=== PATIENT | female | born 1955 | race Caucasian/White ===

== ENCOUNTER 2022-04-14 17:04 | Observation (INO) | payer OTHER ==
[2022-04-14] MEDS ORDERED: SODIUM CHLORIDE 0.9% 1,000 ML IV ONE (19:37)
[2022-04-14] MEDS ORDERED: MECLIZINE 12.5 MG TAB PO STA (19:37)
[2022-04-14 20:08] LABS: Basophils % (A) 0 %; Eosinophils % (A) 0 %; HCT 41.7 % (34.0-46.0); HGB 14.5 gm/dL (11.4-16.0); Lymphocytes # (A) 1.9 k/uL (1.0-4.8); Lymphocytes % (A) 23 %; MCHC 34.8 g/dL (31.0-37.0); MCV 91.8 fL (80.0-100.0); Mean Platelet Volume 8.5; Monocytes # (A) 0.3 k/uL (0-1.0); Monocytes % (A) 4 %; Neutrophils # (A) 6.1 k/uL (1.3-7.7); Neutrophils % (A) 71 %; Platelet Count 230 k/uL (150-450); RBC 4.54 m/uL (3.80-5.40); RDW 12.1 % (11.5-15.5); WBC 8.5 k/uL (3.8-10.6)
[2022-04-14 20:18] LABS: ALT 21 U/L (4-34); AST 28 U/L (14-36); African American GFR (CKD) >90 (>60 ml/min/1.73 sqM); Albumin 4.3 g/dL (3.5-5.0); Alkaline Phosphatase 119 U/L (38-126); Anion Gap 4 mmol/L; Blood Urea Nitrogen 13 mg/dL (7-17); Calcium 9.7 mg/dL (8.4-10.2); Carbon Dioxide 29 mmol/L (22-30); Chloride 108 mmol/L (98-107); Glucose 94 mg/dL (74-99); Magnesium 2.2 mg/dL (1.6-2.3); Non-African American GFR(CKD) >90 (>60 ml/min/1.73 sqM); Potassium 3.9 mmol/L (3.5-5.1); Sodium 141 mmol/L (137-145); Total Bilirubin 0.3 mg/dL (0.2-1.3); Total Protein 6.8 g/dL (6.3-8.2)
--- NOTE | 2022-04-14 21:30 | CT ---
EXAMINATION TYPE: CT angio head neck CT DLP: 319.2 mGycm, Automated exposure control for dose reduction was used. DATE OF EXAM: 04/14/2022 9:09 PM COMPARISON: None. CLINICAL INDICATION:Female, 66 years old with history of Persistent dizziness, Persistent dizziness, recent episode of syncope TECHNIQUE: Axially acquired helical CT angiogram of the head and neck was obtained with contrast. Axi al images are supplemented with 3D reconstructions which were post-processed at [facility] NASCET criteria used. Contrast used:65cc mL of Isovue 370 with IV Contrast, Oral contrast used: None. FINDINGS: CTA HEAD: No evidence of acute intracranial hemorrhage, mass effect, or midline shift. The ventricles, sulci, a nd cisterns are unremarkable. The visualized portions of the internal carotid arteries, middle cerebral arteries, anterior cerebral arteries, and posterior cerebral arteries are patent. The basilar and vertebral arteries are patent. CTA NECK: Right Carotid System: The common carotid artery and external carotid artery are patent. The carotid bifurcation demonstrate s no evidence of hemodynamically significant stenosis. The remaining portions of the internal carotid artery demonstrate normal size without significant narrowing. Left Carotid System: The common carotid artery and external carotid artery are patent. The carotid bifurcation demonstrate s no evidence of hemodynamically significant stenosis. The remaining portions of the internal carotid artery demonstrate normal size without significant narrowing. Vertebral arteries are patent without evidence hemodynamically significant stenosis. There is a three-vessel aortic arch. The origins of the great vessels are patent. No evidence of hemo dynamically significant stenosis. Azygous fissure noted in the right lung apex. IMPRESSION: 1. No evidence of dissection of the cervical internal carotid arteries or vertebral arteries or any e vidence of significant stenosis at the carotid bifurcations. 2. No evidence of intracranial high-grade stenosis or intracranial aneurysm.
[2022-04-14] MEDS ORDERED: NALOXONE 0.4 MG/ML 1 ML VIAL IV PRN (22:55)
--- NOTE | 2022-04-14 22:59 | ED ---
General Adult HPI - General Chief complaint: Fall Stated complaint: IHS, Fall, Head Injury Time Seen by Provider: 04/14/22 18:55 Source: patient Mode of arrival: ambulatory Limitations: no limitations - History of Present Illness Initial comments: This is a 66-year-old female with no past medical history presents emergency department for persistent dizziness. The patient stated that on Tuesday she was at work when she tripped and fell after starting to be dizzy and had a syncopal episode. The patient stated that because of this she was forced to come to the emergency department for evaluation. After speaking with the patient for an extended period of time, was reported the patient has had increasing room spinning over the last 4 days associated with "blacking out" multiple times through the day. The patient stated that every time she turns her head right or left it makes the room spinning worse. The patient stated that she is unable to walk straight and is off balance secondary to this. The patient denied having any similar symptoms in the past and denied any URI symptoms the previous weeks. The patient denied any other acute pain or complaints denied any trauma. The patient stated that she had did not hit her head. - Related Data Allergies Allergy/AdvReac Type Severity Reaction Status Date / Time Penicillins Allergy Mild Rash/Hives Verified 04/14/22 17:23 acetaminophen [From Tylenol] Allergy Rash/Hives Verified 04/14/22 17:23 codeine Allergy Rash/Hives Verified 04/14/22 17:23 Review of Systems ROS Statement: Those systems with pertinent positive or pertinent negative responses have been documented in the HPI. ROS Other: All systems not noted in ROS Statement are negative. Past Medical History Past Medical History: No Reported History History of Any Multi-Drug Resistant Organisms: None Reported Past Surgical History: No Surgical Hx Reported Past Psychological History: No Psychological Hx Reported Smoking Status: Former smoker Past Alcohol Use History: None Reported Past Drug Use History: None Reported General Exam Limitations: no limitations General appearance: alert, in no apparent distress Head exam: Present: atraumatic, normocephalic, normal inspection Eye exam: Present: normal appearance, PERRL, EOMI Pupils: Present: normal accommodation ENT exam: Present: normal exam, normal oropharynx, mucous membranes moist Neck exam: Present: normal inspection, full ROM Respiratory exam: Present: normal lung sounds bilaterally Cardiovascular Exam: Present: regular rate, normal rhythm, normal heart sounds GI/Abdominal exam: Present: soft, normal bowel sounds Extremities exam: Present: normal inspection, full ROM Back exam: Present: normal inspection, full ROM Neurological exam: Present: alert, oriented X3, CN II-XII intact, other (Abnormal, unsteady gait with ambulation, patient did not have any symptoms at rest) Psychiatric exam: Present: normal affect, normal mood Skin exam: Present: warm, dry Course Vital Signs 04/14/22 17:20 Temperature 96.8 F L Pulse Rate 68 Respiratory 18 Rate Blood Pressure 142/82 O2 Sat by Pulse 98 Oximetry Medical Decision Making - Medical Decision Making Patient was seen and evaluated in the emergency department. Physical exam, the patient was resting in bed without any acute distress. Vital signs on admission were stable and within normal limits. Due to the nature the patient's persistent room spinning and likely vertigo, CTA of the head and neck was obtained. CTA of the head and neck was negative as was all of her workup. The patient was given 1 L no sealing fluid as well as by mouth Antivert. On reevaluation, the patient stated that her dizziness was mildly improved however every time she moved her head her dizziness was persistent. The patient stated that as she ambulated, she had steady gait and was imbalance. Due to the patient's persistent dizziness and likely vertigo, the patient would require further evaluation. The patient stated that she was unwilling to go home and she stated she did not feel safe as she was still off-balance. Due to these findings, it was agreed to place the patient observation to be seen by neurology. Neurology was present consult at this time. The patient was able to the splint was placed in observation in stable condition. - Lab Data Result diagrams: 04/14/22 19:53 04/14/22 19:53 Lab Results 04/14/22 04/14/22 Range/Units 19:53 19:53 WBC 8.5 (3.8-10.6) k/uL RBC 4.54 (3.80-5.40) m/uL Hgb 14.5 (11.4-16.0) gm/dL Hct 41.7 (34.0-46.0) % MCV 91.8 (80.0-100.0) fL MCH 32.0 (25.0-35.0) pg MCHC 34.8 (31.0-37.0) g/dL RDW 12.1 (11.5-15.5) % Plt Count 230 (150-450) k/uL MPV 8.5 Neutrophils % 71 % Lymphocytes % 23 % Monocytes % 4 % Eosinophils % 0 % Basophils % 0 % Neutrophils # 6.1 (1.3-7.7) k/uL Lymphocytes # 1.9 (1.0-4.8) k/uL Monocytes # 0.3 (0-1.0) k/uL Eosinophils # 0.0 (0-0.7) k/uL Basophils # 0.0 (0-0.2) k/uL Sodium 141 (137-145) mmol/L Potassium 3.9 (3.5-5.1) mmol/L Chloride 108 H (98-107) mmol/L Carbon Dioxide 29 (22-30) mmol/L Anion Gap 4 mmol/L BUN 13 (7-17) mg/dL Creatinine 0.66 (0.52-1.04) mg/dL Est GFR (CKD-EPI)AfAm >90 (>60 ml/min/1.73 sqM) Est GFR (CKD-EPI)NonAf >90 (>60 ml/min/1.73 sqM) Glucose 94 (74-99) mg/dL Calcium 9.7 (8.4-10.2) mg/dL Magnesium 2.2 (1.6-2.3) mg/dL Total Bilirubin 0.3 (0.2-1.3) mg/dL AST 28 (14-36) U/L ALT 21 (4-34) U/L Alkaline Phosphatase 119 (38-126) U/L Total Protein 6.8 (6.3-8.2) g/dL Albumin 4.3 (3.5-5.0) g/dL Disposition Clinical Impression: Dizziness, Vertigo, Pre-syncope Disposition: ADMITTED IP TO THIS HOSP Condition: Stable Is patient prescribed a controlled substance at d/c from ED?: No Referrals: None,Stated [Primary Care Provider] - 1-2 days Time of Disposition: 22:50 Decision to Admit Reason: Admit from EC Decision Date: 04/14/22 Decision Time: 22:50
[2022-04-14] MEDS: SODIUM CHLORIDE 0.9% 1,000 ML IV SCH (23:01)
[2022-04-15] MEDS ORDERED: MECLIZINE 12.5 MG TAB PO PRN (09:06)
--- NOTE | 2022-04-15 09:56 | P.CNNES ---
History of Present Illness Consult date: 04/15/22 Requesting physician: Walt Dash Reason for Consult: persistent dizziness, vertigo History of Present Illness: This is a 66-year-old woman who presented emergency department because of dizziness. This Tuesday the patient was at work and she was feeling dizzy as a result she tripped and fell. She has been having dizziness for 4 days prior to present in the hospital and she feels the room is spinning associate with blacking out multiple times throughout the day. Whenever she turns her head to the right or left makes the room spinning even worse. She denies ringing of ears, focal weakness, numbness, visual disturbance. She stated this past Tuesday she "blacked out" and stated it happened twice at home. She denies urinary or bowel incontinence or tongue bite or soreness of tongue. She felt one episode was very short in duration and other was possibly long but those were unwitnessed. Denies history of seizure. She feels her symptoms are improving of dizziness. Denies further black outs. Some of the workup during his hospital visit consisted of: Patient orthostatic vitals of supine sitting and standing blood pressure will is negative for orthostatic. CBC with differential and chemistry panel seem unremarkable. CT angiography of the head and neck is reported as no evidence of dissection of the cervical internal carotid arteries or vertebral arteries or any evidence of significant stenosis at the carotid bifurcation. No evidence of intracranial high-grade stenosis or intracranial aneurysm. Review of Systems Review of system: The 12 point system was reviewed and apparent positive and negative per HPI. Past Medical History Past Medical History: No Reported History History of Any Multi-Drug Resistant Organisms: None Reported Past Surgical History: No Surgical Hx Reported Past Psychological History: No Psychological Hx Reported Smoking Status: Former smoker Past Alcohol Use History: None Reported Past Drug Use History: None Reported Medications and Allergies Home Medications Medication Instructions Recorded Confirmed Type No Known Home Medications 04/15/22 04/15/22 History Allergies Allergy/AdvReac Type Severity Reaction Status Date / Time Penicillins Allergy Mild passes out Verified 04/15/22 06:40 acetaminophen [From Tylenol] Allergy passes out Verified 04/15/22 06:40 codeine Allergy passes out Verified 04/15/22 06:40 Physical Examination - Vital Signs Vital Signs: Vital Signs Temp Pulse Pulse Resp BP BP BP 04/15/22 07:00 97.4 F L 66 16 144/89 144/99 04/15/22 06:00 52 L 16 105/63 04/14/22 17:20 96.8 F L 68 18 142/82 BP Pulse Ox 04/15/22 07:00 134/78 98 04/15/22 06:00 99 04/14/22 17:20 98 Intake and Output 04/14/22 04/15/22 04/15/22 22:59 06:59 14:59 Other: # Voids 1 Weight 72.575 kg GENERAL: The patient is lying in bed and is not in acute distress. CHEST: The heart rate is regular rate rhythm. No murmurs to auscultation. LUNG: Clear to auscultation bilaterally no wheezing noted throughout. Not labored breathing. ABDOMEN/GI: Bowel sounds present in all 4 quadrants. No tenderness to palpation throughout. NEUROLOGICAL: Higher mental function: The patient is awake, alert, oriented to self, place and time. Patient is following commands. No aphasia and no neglect. Cranial nerves: The pupils are round, equal and reactive to light and accommodation. Visual valdovinos are full to confrontation throughout. Extraocular movement is intact no nystagmus is noted. Facial sensation is normal to touch throughout. The facial strength is normal throughout. Hearing is normal bilaterally to hand rub. Tongue is midline and moved [id number] without any difficulty. No dysarthria is noted. Shoulder shrug is normal bilaterally. Motor: Gait felt slightly dizzy getting up or sitting down but walking on own without difficulty and not swaying towards one side or other. The strength is 5 over 5 throughout. Normal tone and bulk. Cerebellum: Normal finger to nose bilaterally. Sensation: Sensation is normal to touch throughout. Reflexes (right/left): 1+ throughout. Plantars are downgoing bilaterally. Results - Laboratory Findings CBC and BMP: 04/14/22 19:53 04/14/22 19:53 Abnormal Lab Findings: Abnormal Labs 04/14/22 19:53 Chloride 108 H Assessment and Plan Assessment: Acute vertigo and it appears likely more peripheral. Syncopal episode due to above (stated had two black out this past Tuesday). Does not appear seizure. Plan: MRI of the brain is ordered by ED team and is pending. Patient was given meclizine 25 mg once. I started the patient on meclizine 12.5mg 1 tab tid PRN. Consulted physical therapy and occupation therapy for gait training I gave patient instructions of the Aidan maneuver Primary team ordered routine EEG for syncopal episodes. If MRI of the brain is negative and the patient continues to have vertigo that I recommend the patient to follow-up with ENT possible consideration of vestibular rehab therapy. We'll defer the rest of the medical management to the primary team. If MRI the brain is negative for stroke or mass and routine EEG is normal then the patient is clear from a neurological perspective. Thank you for the consultation Time with Patient: Greater than 30
[2022-04-15 12:10] LABS: Appearance,Urine Clear (Clear); Bacteria,Urine Rare /hpf; Bilirubin,Urine Negative (Negative); Blood,Urine Negative (Negative); Color,Urine Light Yellow; Glucose,Urine (UA) Negative (Negative); Ketones,Urine Negative (Negative); Leukocyte Esterase,Urine Moderate (Negative); Mucus,Urine Rare /hpf; Nitrite,Urine Negative (Negative); PH, Urine 6.5 (5.0-8.0); Protein,Urine Negative (Negative); RBC,Urine 1 /hpf (0-5); Specific Gravity,Urine 1.013 (1.001-1.035); Squamous Epithelial Cell,Urine <1 /hpf (0-4); Urobilinogen,Urine <2.0 mg/dL (<2.0); WBC,Urine 4 /hpf (0-5)
[2022-04-15] MEDS: SODIUM CHLORIDE 0.9% 1,000 ML IV SCH ×2 (12:44→19:56)
--- NOTE | 2022-04-15 14:27 | MR ---
EXAMINATION TYPE: MR brain wo con DATE OF EXAM: 04/15/2022 2:20 PM COMPARISON: CTA head 04/14/2022. CLINICAL INDICATION:Female, 66 years old with history of Persistent dizziness, vertigo; PHH, TECHNIQUE: Multi planar, multi sequence imaging was performed through the brain without the administr ation of contrast. FINDINGS: The arndt-white junctions, ventricular system, and cisterns appear unremarkable. Patchy areas of high T2 signal intensity are seen within the periventricular white matter. Midline structures show no abn ormality. Small likely developmental venous anomaly demonstrated within the left parietal lobe (serie s 601, image 425). Diffusion-weighted imaging shows no evidence of restricted diffusion. The suscepti bility weighted images do not reveal any evidence for micro-hemorrhage. The bone marrow signal is within normal limits. The paranasal sinuses and globes are unremarkable. IMPRESSION: 1. No evidence of intracranial mass or acute/subacute infarct. 2. Nonspecific white matter changes, likely secondary to small vessel ischemic disease.
--- NOTE | 2022-04-15 20:32 | HP ---
HISTORY AND PHYSICAL CHIEF COMPLAINT: Vertigo. HISTORY OF PRESENT ILLNESS: This is the first known admission for this 66-year-old white female. Her history is somewhat unusual. Apparently, last Tuesday, she slipped on something at work and fell. She apparently did not have any injury. She did not hit her head. She slipped on something on the floor and there was no history to suggest syncope or any other neurologic issues. She did not have any dizziness. The day before admission, which was 2 days after she fell, she started to develop dizziness, which sounded like true vertigo, when she move her head in any direction will become severe. She also then noticed a final headache. She had no associated hearing loss, tinnitus, any cranial nerve or [employer] signs. She did notice that she had some hypoesthesias in the right arm and leg. These have pretty much cleared now. In the emergency room, she had a CTA of the neck and brain and they were normal. She denies any loss of vision in either eye or any history of [employer] injuries, seizures, etc. She has no family history of any neurologic disorders. Vital signs are normal. REVIEW OF SYSTEMS: She has had no other complaints or problems. She has had no fever, chills, rashes, shortness of breath, cough, history of heart disease, palpitations, murmurs, abdominal pain, nausea, vomiting, hematemesis, melena, hematochezia, jaundice, hepatitis, renal disease, nocturia, frequency, loss of sphincter control, diabetes, etc. Past medical history, family history and personal and social histories are essentially otherwise unremarkable. She does not smoke, drink, or use drugs. She is not on any medication. Family history is unremarkable even though there is some hypertension, diabetes, and Parkinson disease. PHYSICAL EXAMINATION: VITAL SIGNS: Blood pressure 132/86 with a pulse of 89, respirations of 29. She is afebrile. GENERAL: She appeared to be well developed, well nourished, no acute distress. Skin color is normal. SKIN: Warm, dry. LYMPHATICS: Lymph nodes are not enlarged. HEAD, EARS, EYES, NOSE, MOUTH AND THROAT: Normal. NECK: Neck veins are not distended. Thyroid not enlarged. CHEST: Clear. Carotids are normal. CARDIAC: Normal with normal sinus rhythm and no murmurs or extra sounds. ABDOMEN: Soft, nontender. EXTREMITIES: Normal. NEUROLOGICAL: She is intact. Cranial nerves and sensory motor exam were normal. When she turned her head to the right, she did have some reproducible vertigo. IMPRESSION: 1. Vertigo. 2. History of hypoesthesias in the right arm and leg. 3. Headache. PLAN: 1. Bedrest. 2. IV fluids. 3. MRI of the brain. 4. Neurology consult. 5. She wants to be a DNR. MMZEEL / ANY: [id number] /
--- NOTE | 2022-04-15 23:59 | EEG ---
ELECTROENCEPHALOGRAM REPORT CLINICAL HISTORY: This is a 66-year-old woman with dizziness and reported blackouts at home. The video EEG is obtained to evaluate for seizure epileptiform activity. RELEVANT MEDICATION: The patient is not on any antiepileptic drugs. EEG TYPE: A routine 21-channel EEG is performed with video using the 10/20 electrode placement system. DESCRIPTION: Wakefulness and drowsiness are obtained. During awake state, the posterior- dominant rhythm consists of [id number] voltage of 10 to 11 hertz activity that is well modulated, well sustained. There is no physiological stage 2 sleep architecture. There is no focal slowing. Interictal and ictal is none. ACTIVATION PROCEDURE: Photic stimulation did not evoke a posterior driving response. There is no abnormality during the photic stimulation. Hyperventilation is not performed. CLINICAL INTERPRETATION: This is a normal routine EEG. There is no focal slowing, epileptiform discharge, or seizure on the EEG. Normal routine EEG does not rule out underlying epilepsy. Clinical correlation is recommended. WANG / ANY: [id number] / MTDChary
--- NOTE | 2022-04-16 02:35 | PN ---
PROGRESS NOTE CHIEF COMPLAINT: Vertigo, headache, and right-sided hypoesthesias. HISTORY OF PRESENT ILLNESS: This lady is still having a little difficulty with headache and she still has positional vertigo. The hypoesthesias in the right arm have subsided somewhat. PHYSICAL EXAMINATION: CHEST: Clear. CARDIAC: Normal. NEUROLOGICAL: She is intact. IMPRESSION: 1. Labyrinthitis. 2. Hypoesthesias in the right arm. 3. Headache. PLAN: MRI is pending and she is to be seen by Neurology. We will increase her activity and she is on Antivert. MMODL / IJN: [id number] /
[2022-04-16 04:24] VITALS: RESP 16
--- NOTE | 2022-04-16 13:00 | P.PN ---
Subjective Progress Note Date: 04/16/22 The patient is seen at bedside and she feels her dizziness is improving. Denies any further blackouts. Objective - Vital Signs Vital signs: Vital Signs Temp 98.0 F 04/16/22 07:00 Pulse 65 04/16/22 07:00 Resp 16 04/16/22 07:00 BP 119/77 04/16/22 07:00 Pulse Ox 98 04/16/22 07:00 FiO2 Intake & Output 04/15/22 04/16/22 04/16/22 18:59 06:59 18:59 Intake Total 343 Balance 343 Weight 72.575 kg Intake: Oral 343 Other: # Voids 1 1 - Exam GENERAL: The patient is lying in bed and is not in acute distress. NEUROLOGICAL: Higher mental function: The patient is awake, alert, oriented to self, place and time. Patient is following commands. No aphasia and no neglect. Cranial nerves: The pupils are round, equal and reactive to light and accommodation. Visual valdovinos are full to confrontation throughout. Extraocular movement is intact no nystagmus is noted. Facial sensation is normal to touch throughout. The facial strength is normal throughout. Tongue is midline and moved [id number] without any difficulty. No dysarthria is noted. Shoulder shrug is normal bilaterally. Motor: Gait is normal. The strength is 5 over 5 throughout. Normal tone and bulk. Cerebellum: Normal finger to nose heel to chin bilaterally. Sensation: Sensation is normal to touch throughout. Some of the workup during his hospital visit consisted of: Patient orthostatic vitals of supine sitting and standing blood pressure is neg ative for orthostatic. CBC with differential and chemistry panel seem unremarkable. CT angiography of the head and neck is reported as no evidence of dissection of the cervical internal carotid arteries or vertebral arteries or any evidence of significant stenosis at the carotid bifurcation. No evidence of intracranial high-grade stenosis or intracranial aneurysm. MRI the brain is reported as no evidence of atrial mass or acute/subacute infarct. Nonspecific white matter changes, likely secondary to small vessel ischemic disease. Routine EEG is normal. There is no focal slowing, epileptiform discharges or seizure on the EEG. Normal routine EEG does not rule out underlying epilepsy. - Labs CBC & Chem 7: 04/14/22 19:53 04/14/22 19:53 Assessment and Plan Assessment: Acute vertigo and it appears peripheral. MRI Brain is negative---vertigo has improved Syncopal episode due to above (stated had two black out this past Tuesday). Does not appear seizure. Routine EEG is normal. Plan: Continue meclizine 12.5mg 1 tab tid PRN. Consulted physical therapy and occupation therapy for gait training I gave patient instructions of the Aidan maneuver If patient continues to have vertigo, recommend to follow-up with ENT possible consideration of vestibular rehab therapy. We'll defer the rest of the medical management to the primary team. No further neurological work-up. Will sign off. Please reconsult if needed. Time with Patient: Less than 30
[2022-04-16 16:44] VITALS: BP 128/77; PULSE 79; TEMP 97.6
--- NOTE | 2022-04-20 08:45 | DS ---
DISCHARGE SUMMARY CHIEF COMPLAINT: Labyrinthitis and hypoesthesias in the right arm. HISTORY OF PRESENT ILLNESS AND PHYSICAL EXAMINATION: Details of this lady's history and physical can be found in the initial workup. LABORATORY STUDIES: While she was in the hospital, she had laboratory studies, details of which can be found in the laboratory section of her chart. COURSE IN THE HOSPITAL: After admission, she was placed on bedrest and was seen and followed by Neurology. An MRI was done, it was normal. Her dizziness slowly improved and she was doing well and was able to be up and about and was quite steady. It was felt that she could go home and she will be given Antivert. She will follow up in the office in several days. FINAL DIAGNOSES: 1. Vertigo. 2. Right upper extremity hypoesthesias. OPERATIONS: None. CONSULTATIONS: Neurology. She is improved. WANG / ANY: [id number] /
== END 2022-04-16 18:17 | disposition home or self-care (01) ==
LOC: EDBD → EC 17:04 → 6NMEDSUR 22:58
PROVIDERS: ADMIT Family Medicine; ATTEND Family Medicine
DX: R42 Dizziness and giddiness (principal); S09.90XA Unspecified injury of head, initial encounter; W01.0XXA Fall on same level from slipping, tripping and stumbling without subsequent striking against object, initial encounter; R20.1 Hypoesthesia of skin; H83.09 Labyrinthitis, unspecified ear; Z87.891 Personal history of nicotine dependence; R51.9 Headache, unspecified; Z82.49 Family history of ischemic heart disease and other diseases of the circulatory system; Z83.3 Family history of diabetes mellitus; Z82.69 Family history of other diseases of the musculoskeletal system and connective tissue; Z88.6 Allergy status to analgesic agent; Z88.5 Allergy status to narcotic agent; Z88.0 Allergy status to penicillin
CPT/HCPCS: 96361 ×3; 96360; 99285; 36415; 95816; 97162; 97165; 80053; 83735; 85025; 81001; 70496; 70498; 70551; G0378 ×3; Q9967